=== PATIENT | female | born 1935 | race Caucasian/White ===

== ENCOUNTER 2020-07-23 12:40 | Inpatient (IN) ==
[2020-07-23] MEDS ORDERED: DILTIAZEM 50 MG/10 ML VIAL IV STA ×2 (13:15→13:51)
[2020-07-23 13:58] LABS: Basophils % 0.1 % (0.0-0.8); Hematocrit 40.4 VOL% (35.7-47.0); Immature Granulocytes % 0.7 %; Immature Granulocytes Absolute 0.14 #; Lymphocytes # 0.5 10*3/uL (1.4-4.0); Lymphocytes % 2.3 % (21.3-54.2); Mean Corpuscular HGB Conc 32.2 GM/DL (32-36); Mean Corpuscular Volume 92.2 FL (87-102); Monocytes % 7.4 % (1.7-12.7); Neutrophils % 89.5 % (38.7-73.9); Platelet Count 159 T/CUMM (130-400); Red Blood Count 4.38 MC/CUMM (3.8-5.5); Red Cell Distribution Width 12.8 % (9.3-17.3); White Blood Count 20.9 T/CUMM (4-12)
[2020-07-23 14:02] LABS: Calcium 8.9 MG/DL (8.5-10.1); Potassium 4.3 MMOL/L (3.5-5.1)
[2020-07-23 14:24] LABS: Lymphocytes 2 % (20-55); Platelet Estimate Adequate; Segmented Neutrophils 93 % (50-85); Total Cells Counted 100
[2020-07-23] MEDS ORDERED: GLUCAGON 1 MG VIAL IM PRN (14:45)
[2020-07-23] MEDS ORDERED: HYDROmorphone 2 MG/1 ML VIAL IV PRN (14:45)
[2020-07-23] MEDS ORDERED: ENOXAPARIN 40 MG/0.4 ML SYRINGE SUBCUT ONE (14:45)
[2020-07-23] MEDS ORDERED: ACETAMINOPHEN 325 MG TABLET PO PRN (14:45)
[2020-07-23] MEDS ORDERED: ONDANSETRON 4 MG/2 ML VIAL IV PRN (14:45)
[2020-07-23] MEDS ORDERED: DEXTROSE 50% 25 GM/50 ML VIAL IV PRN (14:45)
[2020-07-23 15:27] LABS: Risk Ratio 2.77; Thyroid Stimulating Hormone 0.947 uIU/ml (0.358-3.74); VLDL CHOLESTEROL 12.6 MG/DL
[2020-07-23] MEDS ORDERED: LACTATED RINGERS 1,000 ML IV SCH (15:30)
[2020-07-23] MEDS: SODIUM CHLORIDE 0.9% 1,000 ML IV SCH (15:49)
[2020-07-23] MEDS: METOPROLOL SUCCINATE XL 100 MG TABLET PO SCH (15:49)
[2020-07-23] MEDS: DIGOXIN 0.125 MG TABLET PO SCH (15:49)
[2020-07-23] MEDS ORDERED: DILTIAZEM INJ 100 MG in SODIUM CHLORIDE 0.9% 100 ML IV SCH (17:00)
[2020-07-23] MEDS: DONEPEZIL 10 MG TABLET PO SCH (20:33)
[2020-07-23] MEDS: ASCORBIC ACID 500 MG TABLET PO SCH (20:33)
[2020-07-23] MEDS: DOCUSATE SODIUM 100 MG CAPSULE PO SCH (20:33)
[2020-07-23] MEDS ORDERED: ZIPRASIDONE 20 MG/1 ML VIAL IM ONE ×2 (23:30→23:32)
[2020-07-24 05:54] LABS: Basophils % 0.2 % (0.0-0.8); Eosinophils % 0.2 % (0.00-10.9); Hematocrit 35.5 VOL% (35.7-47.0); Hemoglobin 11.5 GM/DL (12.0-16.0); Immature Granulocytes % 0.5 %; Immature Granulocytes Absolute 0.08 #; Lymphocytes # 0.7 10*3/uL (1.4-4.0); Lymphocytes % 4.2 % (21.3-54.2); Mean Corpuscular HGB Conc 32.4 GM/DL (32-36); Mean Corpuscular Volume 92.7 FL (87-102); Mean Platelet Volume 10.4 FL (9.6-12.0); Monocytes % 6.7 % (1.7-12.7); Neutrophils % 88.2 % (38.7-73.9); Platelet Count 142 T/CUMM (130-400); Red Blood Count 3.83 MC/CUMM (3.8-5.5); Red Cell Distribution Width 13.2 % (9.3-17.3); White Blood Count 16.4 T/CUMM (4-12)
[2020-07-24 06:12] LABS: Osmolality,Calculated 282.8 MOS/KG (273-304); Potassium 4.7 MMOL/L (3.5-5.1)
[2020-07-24] MEDS: SODIUM CHLORIDE 0.9% 1,000 ML IV SCH ×2 (06:14→17:38)
[2020-07-24 06:33] LABS: Eosinophils 1 % (0-10); Lymphocytes 3 % (20-55); Platelet Estimate Adequate; Segmented Neutrophils 92 % (50-85); Total Cells Counted 100
[2020-07-24] MEDS ORDERED: ceFAZolin 1,000 MG in SYRINGE 1 EACH IV ONE (08:30)
[2020-07-24] MEDS ORDERED: MELOXICAM 7.5 MG TABLET PO SCH (09:00)
[2020-07-24] MEDS ORDERED: DILTIAZEM 30 MG TABLET PO SCH (09:34)
[2020-07-24] MEDS ORDERED: DILTIAZEM INJ 100 MG in SODIUM CHLORIDE 0.9% 100 ML IV SCH (10:00)
[2020-07-24] MEDS ORDERED: fentaNYL 100 MCG/2 ML VIAL ONE (10:57)
[2020-07-24] MEDS ORDERED: LIDOCAINE 2% 5 ML VIAL ONE (10:57)
[2020-07-24] MEDS ORDERED: ROCURONIUM 50 MG/5 ML VIAL IV ONE (10:57)
[2020-07-24] MEDS ORDERED: propofoL 200 MG/20 ML VIAL IV ONE (10:57)
[2020-07-24] MEDS ORDERED: BACITRACIN OINT 0.9 GM PACK TOP ONE (11:29)
[2020-07-24] MEDS ORDERED: MAGNESIUM HYDROXIDE SUSP 30 ML UDCUP PO PRN (12:08)
[2020-07-24] MEDS ORDERED: MORPHINE 4 MG/1 ML VIAL IV PRN (12:10)
[2020-07-24] MEDS ORDERED: PHENYLEPHRINE 1 MG/10 ML SYRINGE IV ONE (12:14)
[2020-07-24] MEDS ORDERED: ONDANSETRON 4 MG/2 ML VIAL ONE (12:15)
[2020-07-24] MEDS ORDERED: NEOSTIGMINE 10 MG/10 ML VIAL ONE (12:38)
[2020-07-24] MEDS ORDERED: GLYCOPYRROLATE 0.4 MG/2 ML VIAL ONE (12:38)
[2020-07-24] MEDS ORDERED: MEPERIDINE 25 MG/1 ML VIAL ONE (13:27)
[2020-07-24] MEDS ORDERED: ONDANSETRON 4 MG/2 ML VIAL IV PRN (13:28)
[2020-07-24] MEDS: MEPERIDINE 50 MG/1 ML VIAL IV PRN (13:30)
[2020-07-24] MEDS: DIGOXIN 0.125 MG TABLET PO SCH (16:02)
[2020-07-24] MEDS: METOPROLOL SUCCINATE XL 100 MG TABLET PO SCH (16:02)
[2020-07-24] MEDS: MULTIVITAMIN (CENTRUM) TABLET PO SCH (16:02)
[2020-07-24] MEDS: ASCORBIC ACID 500 MG TABLET PO SCH ×2 (16:02→21:26)
[2020-07-24] MEDS: CITALOPRAM 20 MG TABLET PO SCH (16:02)
[2020-07-24] MEDS: PANTOPRAZOLE 40 MG TABLET PO SCH (16:03)
[2020-07-24] MEDS: DOCUSATE SODIUM 100 MG CAPSULE PO SCH ×2 (16:03→21:26)
[2020-07-24] MEDS ORDERED: TUBERCULIN SKIN TEST 0.1 ML SYRINGE INTRADERM ONE (16:40)
[2020-07-24] MEDS: ceFAZolin 1,000 MG in SYRINGE 1 EACH IV SCH (17:38)
[2020-07-24] MEDS: MORPHINE 4 MG/1 ML VIAL IV PRN (19:52)
[2020-07-24] MEDS: DONEPEZIL 10 MG TABLET PO SCH (21:26)
[2020-07-24] MEDS: APIXABAN 2.5 MG TABLET PO SCH (21:26)
[2020-07-25] MEDS: ceFAZolin 1,000 MG in SYRINGE 1 EACH IV SCH (01:00)
[2020-07-25] MEDS: MORPHINE 4 MG/1 ML VIAL IV PRN (01:10)
[2020-07-25 06:58] LABS: Basophils % 0.2 % (0.0-0.8); Eosinophils # 0.2 10*3/uL (0.0-0.87); Eosinophils % 1.2 % (0.00-10.9); Hematocrit 36.8 VOL% (35.7-47.0); Hemoglobin 11.6 GM/DL (12.0-16.0); Immature Granulocytes % 0.9 %; Immature Granulocytes Absolute 0.12 #; Lymphocytes # 1.1 10*3/uL (1.4-4.0); Lymphocytes % 8.1 % (21.3-54.2); Mean Corpuscular HGB Conc 31.5 GM/DL (32-36); Mean Corpuscular Volume 95.3 FL (87-102); Monocytes % 9.8 % (1.7-12.7); Neutrophils % 79.8 % (38.7-73.9); Platelet Count 139 T/CUMM (130-400); Red Blood Count 3.86 MC/CUMM (3.8-5.5); Red Cell Distribution Width 13.2 % (9.3-17.3); White Blood Count 13.9 T/CUMM (4-12)
[2020-07-25 07:19] LABS: Calcium 8.1 MG/DL (8.5-10.1); Osmolality,Calculated 281.4 MOS/KG (273-304); Potassium 3.9 MMOL/L (3.5-5.1)
[2020-07-25 07:20] LABS: Osmolality,Calculated 281.4 MOS/KG (273-304)
[2020-07-25] MEDS: MULTIVITAMIN (CENTRUM) TABLET PO SCH (09:30)
[2020-07-25] MEDS: DOCUSATE SODIUM 100 MG CAPSULE PO SCH ×2 (09:31→20:38)
[2020-07-25] MEDS: METOPROLOL SUCCINATE XL 100 MG TABLET PO SCH (09:31)
[2020-07-25] MEDS: APIXABAN 2.5 MG TABLET PO SCH ×2 (09:31→20:38)
[2020-07-25] MEDS: ASCORBIC ACID 500 MG TABLET PO SCH ×2 (09:31→20:38)
[2020-07-25] MEDS: CITALOPRAM 20 MG TABLET PO SCH (09:31)
[2020-07-25] MEDS: PANTOPRAZOLE 40 MG TABLET PO SCH (09:32)
[2020-07-25] MEDS: SODIUM CHLORIDE 0.9% 1,000 ML IV SCH ×2 (09:32→20:41)
[2020-07-25] MEDS ORDERED: MYLANTA/LIDO VISC 2:1 300 ML BOTTLE SWISH/SWAL PRN (12:18)
[2020-07-25] MEDS: DIGOXIN 0.125 MG TABLET PO SCH (12:32)
[2020-07-25 15:41] LABS: Bacteria,Urine Occasional /HPF (Few); Bilirubin,Urine Negative (Negative); Blood, Urine Negative (Negative); Glucose,Urine (UA) Negative (Negative); Ketones,Urine Negative (Negative); Mucus,Urine Few /LPF (Occasional); Nitrite,Urine Negative (Negative); Protein,Urine Negative; Squamous Epithelial Cell,Urine Occasional /HPF (0-10); Urine Appearance CLEAR (Clear); Urine Color Yellow (Yellow); Urine Specific Gravity 1.021 (1.001-1.035); Urine Urobilinogen < 2.0 EU/DL (0.2-1.0)
[2020-07-25] MEDS: PHENOL 1.4% THROAT SPRAY 177 ML BOTTLE PO PRN (17:11)
[2020-07-25] MEDS: DONEPEZIL 10 MG TABLET PO SCH (20:38)
[2020-07-26] MEDS: MORPHINE 4 MG/1 ML VIAL IV PRN ×3 (01:56→10:29)
[2020-07-26 05:32] LABS: Basophils % 0.3 % (0.0-0.8); Eosinophils # 0.4 10*3/uL (0.0-0.87); Hemoglobin 11.6 GM/DL (12.0-16.0); Immature Granulocytes % 0.9 %; Immature Granulocytes Absolute 0.08 #; Lymphocytes % 10.5 % (21.3-54.2); Mean Corpuscular HGB Conc 32.2 GM/DL (32-36); Mean Corpuscular Volume 93.5 FL (87-102); Monocytes % 10.6 % (1.7-12.7); Neutrophils % 73.7 % (38.7-73.9); Platelet Count 126 T/CUMM (130-400); Red Blood Count 3.85 MC/CUMM (3.8-5.5); White Blood Count 9.3 T/CUMM (4-12)
[2020-07-26 06:10] LABS: Calcium 8.2 MG/DL (8.5-10.1); Osmolality,Calculated 282.3 MOS/KG (273-304); Potassium 3.7 MMOL/L (3.5-5.1)
[2020-07-26] MEDS: PANTOPRAZOLE 40 MG TABLET PO SCH (10:15)
[2020-07-26] MEDS: MULTIVITAMIN (CENTRUM) TABLET PO SCH (10:15)
[2020-07-26] MEDS: CITALOPRAM 20 MG TABLET PO SCH (10:16)
[2020-07-26] MEDS: METOPROLOL SUCCINATE XL 100 MG TABLET PO SCH (10:16)
[2020-07-26] MEDS: DOCUSATE SODIUM 100 MG CAPSULE PO SCH ×2 (10:16→21:00)
[2020-07-26] MEDS: APIXABAN 2.5 MG TABLET PO SCH ×2 (10:16→21:00)
[2020-07-26] MEDS: ASCORBIC ACID 500 MG TABLET PO SCH ×2 (10:16→21:00)
[2020-07-26] MEDS: SODIUM CHLORIDE 0.9% 1,000 ML IV SCH (10:18)
[2020-07-26] MEDS: DIGOXIN 0.125 MG TABLET PO SCH (13:41)
[2020-07-26] MEDS: PHENOL 1.4% THROAT SPRAY 177 ML BOTTLE PO PRN (17:48)
[2020-07-26] MEDS: DONEPEZIL 10 MG TABLET PO SCH (21:00)
[2020-07-27 06:37] LABS: Basophils % 0.2 % (0.0-0.8); Eosinophils # 0.3 10*3/uL (0.0-0.87); Eosinophils % 3.7 % (0.00-10.9); Hematocrit 36.4 VOL% (35.7-47.0); Hemoglobin 11.7 GM/DL (12.0-16.0); Immature Granulocytes % 1.1 %; Immature Granulocytes Absolute 0.09 #; Lymphocytes # 1.3 10*3/uL (1.4-4.0); Mean Corpuscular HGB Conc 32.1 GM/DL (32-36); Mean Corpuscular Volume 92.9 FL (87-102); Mean Platelet Volume 10.4 FL (9.6-12.0); Monocytes % 12.1 % (1.7-12.7); Neutrophils % 67.9 % (38.7-73.9); Platelet Count 159 T/CUMM (130-400); Red Blood Count 3.92 MC/CUMM (3.8-5.5); Red Cell Distribution Width 12.8 % (9.3-17.3); White Blood Count 8.5 T/CUMM (4-12)
[2020-07-27 06:50] LABS: Calcium 8.5 MG/DL (8.5-10.1); Potassium 3.4 MMOL/L (3.5-5.1)
[2020-07-27] MEDS ORDERED: POTASSIUM CHLORIDE 20 MEQ TABLET PO PRN (07:48)
[2020-07-27] MEDS: MULTIVITAMIN (CENTRUM) TABLET PO SCH (09:05)
[2020-07-27] MEDS: DOCUSATE SODIUM 100 MG CAPSULE PO SCH (09:05)
[2020-07-27] MEDS: METOPROLOL SUCCINATE XL 100 MG TABLET PO SCH (09:05)
[2020-07-27] MEDS: ASCORBIC ACID 500 MG TABLET PO SCH (09:05)
[2020-07-27] MEDS: PANTOPRAZOLE 40 MG TABLET PO SCH (09:05)
[2020-07-27] MEDS: APIXABAN 2.5 MG TABLET PO SCH (09:05)
[2020-07-27] MEDS: CITALOPRAM 20 MG TABLET PO SCH (09:05)
[2020-07-27] MEDS: PHENOL 1.4% THROAT SPRAY 177 ML BOTTLE PO PRN (10:16)
[2020-07-27] MEDS ORDERED: POTASSIUM CHLORIDE 20 MEQ TABLET PO ONE (10:20)
[2020-07-27] MEDS: DIGOXIN 0.125 MG TABLET PO SCH (12:03)
[2020-07-27 12:56] VITALS: BP 148/86
== END 2020-07-27 17:37 | DRG 481 ==
LOC: EDBD → EDUNIT# → N.ED 12:40 → N.EDINP 14:15 → N.TELEN 15:13
PROVIDERS: ADMIT Internal Medicine; ATTEND Internal Medicine